=== PATIENT | male | born 1965 | race African-American/Black ===

== ENCOUNTER 2017-03-19 11:49 | Emergency (ER) | payer MEDICARE, MEDICAID ==
[~2017-03-19] VITALS: Ht 175.3 cm; Wt 81.6 kg
[~2017-03-19 11:49] MED LIST: GLYB5TAB8
[2017-03-19 12:56] LABS: Basophils # (auto) 0.1 uL; Basophils % (auto) 0.7 % (0.0-2.0); Eosinophils # (auto) 0.1 uL; Eosinophils % (auto) 0.8 % (0.0-7.0); Hematocrit 40.1 % (41.0-53.0); Hemoglobin 12.9 g/dL (13.5-17.5); Lymphocytes # (auto) 1.6 uL; Lymphocytes % (auto) 18.3 % (10.0-50.0); Mean Corpuscular Hemoglobin 25.4 pg (28.0-32.0); Mean Corpuscular Hgb Conc. 32.1 g/dL (32.0-36.0); Mean Corpuscular Volume 79.1 fL (80.0-100.0); Mean Platelet Volume 7.6 fL (6.9-10.8); Monocytes # (auto) 1.2 uL; Monocytes % (auto) 14.1 % (0.0-12.0); Neutrophils # (auto) 5.8 uL; Neutrophils % (auto) 66.1 % (37.0-80.0); Nucleated Red Blood Cells % 0.1 %; Platelet Count (auto) 400 10^3/uL (140-450); Red Cell Distribution Width 15.1 % (11.8-14.3); White Blood Cell 8.8 10^3/uL (4.4-10.8)
[2017-03-19 13:13] LABS: Albumin 3.4 g/dL (3.4-5.0); Alkaline Phosphatase 170 U/L (45-117); Anion Gap 12 (5-15); Aspartate Aminotransferase 24 U/L (15-37); BUN/Creatinine Ratio 17.8; Bilirubin, Total 0.3 mg/dL (0.2-1.0); Blood Urea Nitrogen 73 mg/dL (7-18); Calcium 9.3 mg/dL (8.5-10.1); Carbon Dioxide 18 mmol/L (21-32); Chloride 101 mmol/L (98-107); GFR African American 20 mL/min; GFR Non-African American 16 mL/min; Glucose 246 mg/dL (74-106); Potassium 4.9 mmol/L (3.5-5.1); Sodium 131 mmol/L (136-145); Total Protein 9.1 g/dL (6.4-8.2)
[2017-03-19 13:51] VITALS: BP 113/78
[2017-03-19] MEDS ORDERED: cefTRIAXone 1GM/50ML D5W 50 ML IV ONE (14:30)
[2017-03-19] MEDS ORDERED: LIDOCAINE 2%HCL (LOCAL ANESTH.) INJ 20ML MDV ONE (14:38)
[2017-03-19] MEDS ORDERED: cefTRIAXone SOD 1,000 MG VL IM ONE (14:45)
== END 2017-03-19 15:15 | disposition home or self-care (01) ==
LOC: ER 11:49
DX: K02.9 Dental caries, unspecified (principal); E11.22 Type 2 diabetes mellitus with diabetic chronic kidney disease; N18.9 Chronic kidney disease, unspecified; E78.5 Hyperlipidemia, unspecified; R50.9 Fever, unspecified; F17.210 Nicotine dependence, cigarettes, uncomplicated; Z90.49 Acquired absence of other specified parts of digestive tract; Z79.899 Other long term (current) drug therapy; R42 Dizziness and giddiness
CPT/HCPCS: 36415; 70450; 80053; 84484; 85025; 93005; 96372; 99285; J0696

== ENCOUNTER 2018-04-09 10:43 | Emergency (ER) | payer OTHER, MEDICAID ==
[~2018-04-09] VITALS: Ht 175.3 cm; Wt 73.9 kg
[2018-04-09 12:10] LABS: Eosinophils # (auto) 0.1 uL; Eosinophils % (auto) 2.1 % (0.0-7.0); White Blood Cell 5.4 10^3/uL (4.4-10.8)
[2018-04-09 12:13] LABS: Basophils # (auto) 0.1 uL; Hematocrit 34.1 % (41.0-53.0); Lymphocytes # (auto) 1.2 uL; Lymphocytes % (auto) 21.4 % (10.0-50.0); Mean Corpuscular Hgb Conc. 32.3 g/dL (32.0-36.0); Mean Corpuscular Volume 80.5 fL (80.0-100.0); Monocytes # (auto) 0.4 uL; Neutrophils # (auto) 3.6 uL; Neutrophils % (auto) 67.5 % (37.0-80.0); Nucleated Red Blood Cells % 0.1 %; Platelet Count (auto) 371 10^3/uL (140-450); Red Blood Cells 4.24 10^6/uL (4.5-5.90); Red Cell Distribution Width 15.5 % (11.8-14.3)
[2018-04-09 12:20] LABS: Alanine Aminotransferase 24 U/L (16-61); Albumin 3.3 g/dL (3.4-5.0); Anion Gap 6 (5-15); Aspartate Aminotransferase 15 U/L (15-37); BUN/Creatinine Ratio 9.2; Blood Urea Nitrogen 16 mg/dL (7-18); Calcium 8.7 mg/dL (8.5-10.1); Carbon Dioxide 25 mmol/L (21-32); Chloride 108 mmol/L (98-107); GFR African American 53 mL/min; GFR Non-African American 44 mL/min; Glucose 225 mg/dL (74-106); Potassium 4.9 mmol/L (3.5-5.1); Sodium 139 mmol/L (136-145)
[2018-04-09 12:24] LABS: Alcohol, Urine < 3.0 mg/dL (0-5); Amphetamine Screen, Urine POSITIVE (NEGATIVE); Barbiturate Scree,Urine NEGATIVE (NEGATIVE); Benzodiazephine Screen, Urine NEGATIVE (NEGATIVE); Cannabinoid Screen, Urine NEGATIVE (NEGATIVE); Cocaine Screen, Urine NEGATIVE (NEGATIVE); Opiate Scree,Urine NEGATIVE (NEGATIVE); Phencyclidine Screen, Urine NEGATIVE (NEGATIVE)
[2018-04-09 12:36] LABS: Alkaline Phosphatase 181 U/L (45-117); Bilirubin, Total 0.3 mg/dL (0.2-1.0); Total Protein 7.8 g/dL (6.4-8.2)
[2018-04-09 14:27] VITALS: BP 140/82
== END 2018-04-09 14:28 | disposition home or self-care (01) ==
LOC: ER 10:43
DX: F15.10 Other stimulant abuse, uncomplicated (principal); E11.22 Type 2 diabetes mellitus with diabetic chronic kidney disease; N18.9 Chronic kidney disease, unspecified; E78.5 Hyperlipidemia, unspecified; F17.210 Nicotine dependence, cigarettes, uncomplicated; Z90.49 Acquired absence of other specified parts of digestive tract
CPT/HCPCS: 36415; 70450; 71045; 80053; 80307; 83735; 84484; 85025; 93005; 94761

== ENCOUNTER 2018-11-21 05:06 | Emergency (ER) | payer OTHER, MEDICAID ==
[~2018-11-21] VITALS: Ht 180.3 cm; Wt 83.9 kg
[2018-11-21 05:46] VITALS: BP 160/100
== END 2018-11-21 07:00 | disposition left against medical advice (07) ==
LOC: EDBD 05:06 → ER 05:06
DX: R41.0 Disorientation, unspecified (principal); Z53.21 Procedure and treatment not carried out due to patient leaving prior to being seen by health care provider